=== PATIENT | female | born 1960 | race Caucasian/White ===

== ENCOUNTER → 2016-06-23 11:40 | Outpatient (CLI) | payer MEDICARE | END | disposition home or self-care (01) | LOC: D.MRI 11:40 | DX: M54.2 Cervicalgia (principal) ==

== ENCOUNTER 2017-09-13 05:20 | Day surgery (SDC) | payer BC, MEDICARE ==
[2017-09-12 10:57] LABS: MCH 30.5 pg (26.0-34.0); MCHC 34.1 g/dL (31.0-37.0); MCV 89.6 fL (80.0-100.0); MEAN PLATELET VOLUME 10.4 fL (7.4-10.4); RBC 4.91 10x6/uL (4.00-5.40); WBC 13.6 10x3/uL (4.8-10.8)
[~2017-09-13] VITALS: Ht 165.1 cm; Wt 63.0 kg
--- NOTE | ~2017-09-13 | OP ---
PATIENT NAME: NIKO SAMUEL I MEDICAL RECORD: [id number] LOCATION:[facility] ADMISSION DATE: SURGEON: JAI SIMEON MD DATE OF OPERATION: 09/13/2017 PREOPERATIVE DIAGNOSES: Lumbar spinal stenosis and foraminal stenosis at L4-L5, left. POSTOPERATIVE DIAGNOSES: Lumbar spinal stenosis and foraminal stenosis at L4-L5, left, with L5 radiculopathy on the left. PROCEDURE: Lumbar laminotomy, laminectomy, medial facetectomy and foraminotomy L4-L5 left with Midas Jas retractor and microscopic illumination. SURGEON: Jai Simeon MD DESCRIPTION AND TECHNIQUE: After induction of general endotracheal anesthesia, the patient was rolled prone on the Noah frame. Lumbar spine was prepped and draped in usual sterile fashion. Fluoroscopic x-ray and spinal needle localized the L4-L5 interspace on the left side. A stab incision was created with #11 blade. Series of dilators was used to advance a METRx retractor to the L4-L5 interspace on the left side. The level was confirmed with fluoroscopic x-ray. Microscope and Midas Jas drill were used to perform laminectomy, medial facetectomy and foraminotomy at L4-L5 on the left. Hypertrophied ligamentum flavum was removed within the central canal and the foramen. Following this, the L4 and L5 nerve roots were decompressed well. Meticulous hemostasis was maintained throughout the wound. The disc space was inspected and found to cause no significant nerve root compression. The retractors were removed. The fascia was closed with 2-0 Vicryl suture. The subdermal layer was closed with 3-0 Vicryl suture. The skin was reapproximated with Steri-Strips and benzoin. A sterile dressing was applied to the wound. The patient was awakened in good condition and taken to recovery. All counts were reported as correct. Estimated blood loss was minimal. TRANSINT:[id number] Voice Confirmation ID: [id number] DOCUMENT ID: [id number] JAI SIMEON MD at 1606 CC: [id number] DICTATION DATE: 09/14/17 09 LOGGER ALL ROUND: 09/14/17 1223 [facility] 09/13/17 [place] [address]
[~2017-09-13 05:20] MED LIST: AMANTADINE100 M1 PO; ATIVAN0.5 MG PO; AUBAGIO14 MG PO; FLUTICASONE PRO16 GM NASAL; NEURONTIN 400400 MG PO; ZANAFLEX2 M1 PO
[2017-09-13 06:16] VITALS: BP 114/70; Ht 165.1 cm; Wt 63.0 kg
== END 2017-09-13 11:55 | disposition home or self-care (01) ==
LOC: D.OPS 05:20 → D.PAN 07:30 → D.OPS 11:55
PROVIDERS: Anesthesiology
DX: M48.061 Spinal stenosis, lumbar region without neurogenic claudication (principal); M54.16 Radiculopathy, lumbar region; F17.200 Nicotine dependence, unspecified, uncomplicated; Z01.812 Encounter for preprocedural laboratory examination